=== PATIENT | female | born 1955 | race Caucasian/White ===

== ENCOUNTER → 2020-07-09 09:30 | Outpatient (CLI) | payer MEDICARE, BC | END | disposition home or self-care (01) | LOC: D.MRI 09:30 | PROVIDERS: ATTEND Orthopaedic Surgery | DX: M75.121 Complete rotator cuff tear or rupture of right shoulder, not specified as traumatic (principal) ==

== ENCOUNTER 2020-07-28 07:40 | Day surgery (SDC) | payer MEDICARE, BC ==
--- NOTE | 2020-07-25 08:48 | NUR ---
bp rt arm 154/77 pt states she has white coat syndrome and is usually high at dr offices.
[2020-07-25 09:33] LABS: HEMATOCRIT 40.8 % (36.0-48.0); HEMOGLOBIN 13.4 g/dL (12-16); MCH 29.1 pg (26.0-34.0); MCHC 32.8 g/dL (31.0-37.0); MCV 88.5 fL (80.0-100.0); MEAN PLATELET VOLUME 9.6 fL (7.4-10.4); RBC 4.61 10x6/uL (4.00-5.40); RDW 13.7 % (11.5-14.5); WBC 9.9 10x3/uL (4.8-10.8)
[2020-07-25 09:52] LABS: INR 1.56 (0.85-1.17); PROTIME 18.6 SECONDS (11.6-15.0)
[~2020-07-28] VITALS: Ht 152.4 cm; Wt 62.6 kg
[~2020-07-28 07:40] MED LIST: ALENDRONATE SOD35 MG PO; CITRACAL + D E1 EACH PO; COZAAR50 MG PO; GABAPENTIN300 MG PO; OMEPRAZOLE DR 20 MG PO; TRIAMTERENE-HC1 EAC6 PO; ULTRAM50 MG PO; WARFARIN SODIUM1 MG PO; ZOCOR20 MG PO; ZYRTEC10 MG PO
[2020-07-28 08:02] VITALS: BP 133/71; Ht 152.4 cm; Wt 62.6 kg
--- NOTE | 2020-07-28 09:40 | NUR ---
0915 BLOCK ON RIGHT SHOULDER COMPLETED BY ANESTHESIA. 929 VSS. RESPIRATIONS UNLABORED AND EVEN
[2020-07-28] MEDS ORDERED: HYDROCODON-ACE1 EA10 PO (10:34)
--- NOTE | 2020-07-28 11:25 | NUR ---
1120 COFFEE SERVED 1125 PT. DECIDED WANTED COLA INSTEAD OF COFFEE, COLA SERVED, HOB ELEVATED MORE. DRESSING CDI, ICE CAP ON BLOCK REMAINS IN EFFECT.
--- NOTE | 2020-07-28 13:03 | NUR ---
1215 IV DC'D. CATHETER TIP INTACT. NO BLEEDING AT SITE. COBAN DRESSING WRAPPED AROUND IV SITE. 1230 PT DRESSED. REVIEWED DISCHARGE INSTRUCTIONS WITH PT AND HER . BOTH VOICE UNDERSTANDING OF INSTRUCTIONS.
--- NOTE | 2020-07-29 16:07 | OP ---
PATIENT NAME: MAXIM TRAYLOR MEDICAL RECORD: [id number] :55 [facility] AD[facility] DATE: SURGEON: CÉSAR HITCHCOCK MD DATE OF OPERATION: 07/28/2020 PREOPERATIVE DIAGNOSIS: Rotator cuff tear of the right shoulder with impingement syndrome. POSTOPERATIVE DIAGNOSES: Rotator cuff tear of the right shoulder with impingement syndrome. PROCEDURE: 1. Arthroscopic rotator cuff repair. 2. Arthroscopic distal clavicle excision done through separate incision - 1 cm. 3. Arthroscopic subacromial decompression with acromioplasty and bursectomy. SURGEON: César Hitchcock MD ANESTHESIA: General. INTRAOPERATIVE COMPLICATIONS: None. SUMMARY OF PATHOLOGIC FINDINGS: The patient was indeed found to have a full thickness rotator cuff tearing as well as impingement syndrome with excoriation of the coracoacromial ligament. 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 OPERATIVE SUMMARY IN DETAIL: After obtaining the appropriate preoperative orthopedic surgery consent as well as anesthetic consultation, evaluation and clearance, the patient was brought to the operating room and placed on the operating table in supine position. After general laryngeal mask airway was administered, the patient was placed in left lateral decubitus position. All pressure points were well padded to include down leg peroneal pad as well as the axillary roll. The patient was held firmly to the operating table using the vacuum pack suction system. Right upper extremity and shoulder were then prepped and draped in routine sterile fashion. The arm was held in the Arthrex traction boom at 30 degrees of forward flexion, 30 degrees of abduction, 10 pounds of traction laterally. At this point, appropriate timeout was taken and agreed upon by all given the patient's unique identifiers. Arthroscopy was established in the glenohumeral joint from the posterior portal. An accessory lateral portal was created for a transrotator cuff tear portal to debride the torn fibers of the rotator cuff and denude the footprint of supraspinatus tendon. Having completed this, attention was turned to the subacromial space. While on subacromial space under direct arthroscopic visualization, the Cornelius tissue ablation system was utilized to denude the undersurface of the acromion of all soft tissue elements and release the coracoacromial ligament. A 5-0 barrel bur was used to perform acromioplasty at the level of acromioclavicular joint and through a separate arthroscopic anterior portal, distal clavicle was excised using 5-0 barrel bur along its inferior osteophytes. Having completed this, further decortication was carried out. A single mattress FiberTape suture was made. It was then with a ripstop incorporated and was anchored laterally with a 5.5 SwiveLock from Arth[employer]. This resulted in excellent reapproximation of the rotator cuff back to its insertion OPERATIVE REPORT [id number] MAXIM TRAYLOR. Having completed this, arthroscopy portals were closed in routine interrupted fashion using 4-0 Prolene. Sterile dressings were applied. The patient was awakened and taken to the recovery room in stable condition. All final needle and sponge counts were correct. 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
== END 2020-07-28 12:40 | disposition home or self-care (01) ==
LOC: D.OPS 07:40 → D.PAN 14:30
PROVIDERS: Anesthesiology; ATTEND Orthopaedic Surgery
DX: M75.121 Complete rotator cuff tear or rupture of right shoulder, not specified as traumatic (principal); M75.41 Impingement syndrome of right shoulder; M25.511 Pain in right shoulder; Z79.01 Long term (current) use of anticoagulants